=== PATIENT | male | born 1965 | race Caucasian/White ===

== ENCOUNTER 2022-06-30 05:30 | Day surgery (SDC) | payer OTHER ==
[~2022-06-30] VITALS: Ht 170.2 cm; Wt 90.7 kg
[2022-06-30] MEDS ORDERED: SUGAMMADEX SODIUM 200 MG/2 ML VIAL IV ONE (07:22)
[2022-06-30] MEDS ORDERED: EPINEPHrine HCL 1 MG/ML VIAL IV ONE (07:22)
[2022-06-30] MEDS ORDERED: NS 1000 ML IV.SOLN IV ONE (07:22)
[2022-06-30] MEDS ORDERED: fentaNYL CITRATE 250 MCG/5 ML AMP IV ONE (07:22)
[2022-06-30] MEDS ORDERED: DEXAMETHASONE SOD PHOSPHATE 4 MG/ML VIAL IVP ONE (07:22)
[2022-06-30] MEDS ORDERED: WATER FOR IRRIGATION,STERILE 1,000 ML IRRIG.SOLN IR ONE (07:22)
[2022-06-30] MEDS ORDERED: LIDOCAINE/EPI 1% 1:100000 20 ML VIAL INJ ONE (07:22)
[2022-06-30] MEDS ORDERED: LR 1,000 ML IV.SOLN IV ONE (07:22)
[2022-06-30] MEDS ORDERED: DESFLURANE 15 MIN GAS INH ONE (07:22)
[2022-06-30] MEDS ORDERED: NS IRRIG SOLN 1000 ML IR ONE (07:22)
[2022-06-30] MEDS ORDERED: MIDAZOLAM HCL 5 MG/5 ML VIAL IVP ONE (07:22)
[2022-06-30] MEDS ORDERED: ROCURONIUM BROMIDE 10 MG/ML (ZEMURON) IV ONE (07:22)
[2022-06-30] MEDS ORDERED: PROPOFOL 200MG/ 20ML VIAL (DIPRIVAN) IV ONE (07:22)
[2022-06-30] MEDS ORDERED: MUPIROCIN 2% TOPICAL OINTMENT 22 GM TP ONE (07:22)
[2022-06-30] MEDS ORDERED: ONDANSETRON HCL 4 MG/2 ML VIAL IVP ONE (07:22)
[2022-06-30] MEDS ORDERED: LIDOCAINE 2%, 20 ML MDV INJ ONE (07:22)
[2022-06-30] MEDS ORDERED: ACETAMINOPHEN I.V. 1000 MG 100 ML IV ONE (08:27)
[2022-06-30] MEDS ORDERED: LR 1,000 ML IV SCH (08:45)
[2022-06-30] MEDS ORDERED: MIDAZOLAM HCL 2 MG/2 ML VIAL (VERSED) IVP PRN (08:45)
[2022-06-30] MEDS ORDERED: MEPERIDINE HCL/PF 25 MG/ML DISP.SYRIN IVP PRN (08:45)
[2022-06-30] MEDS ORDERED: HYDROmorphone 1 MG/ML INJ. CARTRIDGE IVP PRN ×2 (08:45)
[2022-06-30] MEDS ORDERED: hydrALAZINE HCL 20 MG/ML VIAL IVP PRN (08:45)
[2022-06-30] MEDS ORDERED: LABETALOL 100 MG/ 20ML VIAL IVP PRN (08:45)
[2022-06-30] MEDS ORDERED: METOCLOPRAMIDE HCL 10 MG/2 ML VIAL IVP PRN (08:45)
[2022-06-30] MEDS ORDERED: HYDROmorphone 1 MG/ML INJ. CARTRIDGE ONE (11:26)
[2022-06-30 16:49] VITALS: BP_SYST 129
== END 2022-06-30 13:40 | disposition home or self-care (01) ==
LOC: SDS 05:30
PROVIDERS: ATTEND Otolaryngology
DX: J34.2 Deviated nasal septum (principal); D38.5 Neoplasm of uncertain behavior of other respiratory organs; J30.1 Allergic rhinitis due to pollen; G47.33 Obstructive sleep apnea (adult) (pediatric); E66.01 Morbid (severe) obesity due to excess calories; Z68.35 Body mass index [BMI] 35.0-35.9, adult; Z79.899 Other long term (current) drug therapy; Z20.822 Contact with and (suspected) exposure to COVID-19
CPT/HCPCS: 36415 ×2; 31253; 30140; 30520; 31256; 31287; 87070 ×2; 87075; 87101; 88304; 88305; 88311; 87426; U0003; J3490; J1100; J0171; J2001; J2250; J2405; J2704; J3010; J1170; J7120; J7030; C1726; J0131